=== PATIENT | male | born 1975 | race Caucasian/White ===

== ENCOUNTER 2017-10-09 10:38 | Emergency (ER) | payer SELFPAY ==
[2017-10-09 10:57] VITALS: RESP 18; TEMP 98.2; O2SAT 100
[2017-10-09 11:53] LABS: SQUAMOUS EPITHIAL 1 /hpf (0-5); URINE BILIRUBIN NEGATIVE (NEGATIVE); URINE BLOOD NEGATIVE (NEGATIVE); URINE CLARITY Clear (Clear); URINE COLOR Yellow (YELLOW); URINE GLUCOSE (UA) NORMAL (Normal); URINE LEUKOCYTE ESTERASE NEG Leu/uL (Negative); URINE PROTEIN NEGATIVE (NEGATIVE)
--- NOTE | 2017-10-09 12:55 | US ---
Date of service: 10/09/2017 HISTORY: severe swelling of the scrotum TECHNIQUE: Realtime sonography through the scrotum with color and doppler flow. COMPARISON: None Available. FINDINGS: RIGHT TESTICLE: Measures 5.3 x 2.3 x 3.3 cm. Normal echotexture and flow. RIGHT EPIDIDYMIS: Epididymal head measures 0.94 x 0.85 x 0.66 cm. Grossly unremarkable appearance with normal flow. LEFT TESTICLE: Measures 5.11 x 2.7 x 3.1 cm. Normal echotexture and flow. LEFT EPIDIDYMIS: Epididymal head measures 1.4 x 0.5 x 1.22 cm. Grossly unremarkable appearance with normal flow. HYDROCELE: None. VARICOCELE: None. OTHER FINDINGS: There is diffuse scrotal wall thickening noted. IMPRESSION: No evidence of testicular torsion. No evidence of testicular mass. Diffuse scrotal wall thickening.
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
[2017-10-09 13:21] VITALS: BP 125/74; PULSE 58
== END 2017-10-09 13:30 | disposition home or self-care (01) ==
LOC: C.ER 10:38
DX: N50.89 Other specified disorders of the male genital organs (principal)